=== PATIENT | male | born 1960 | race Caucasian/White ===

== ENCOUNTER 2020-10-26 08:24 | Outpatient (CLI) | payer OTHER, SELFPAY | END 2020-10-26 08:25 | disposition home or self-care (01) | LOC: CSHWCC 08:24 | PROVIDERS: ATTEND Nurse Practitioner Family | DX: I87.2 Venous insufficiency (chronic) (peripheral) (principal); L89.610 Pressure ulcer of right heel, unstageable; L89.891 Pressure ulcer of other site, stage 1; E11.621 Type 2 diabetes mellitus with foot ulcer; E11.622 Type 2 diabetes mellitus with other skin ulcer; L97.526 Non-pressure chronic ulcer of other part of left foot with bone involvement without evidence of necrosis; L97.229 Non-pressure chronic ulcer of left calf with unspecified severity; L97.329 Non-pressure chronic ulcer of left ankle with unspecified severity; L97.429 Non-pressure chronic ulcer of left heel and midfoot with unspecified severity; L89.156 Pressure-induced deep tissue damage of sacral region; L89.896 Pressure-induced deep tissue damage of other site; L89.629 Pressure ulcer of left heel, unspecified stage; R60.0 Localized edema; I70.262 Atherosclerosis of native arteries of extremities with gangrene, left leg; E11.51 Type 2 diabetes mellitus with diabetic peripheral angiopathy without gangrene; I70.25 Atherosclerosis of native arteries of other extremities with ulceration; J18.9 Pneumonia, unspecified organism; K85.92 Acute pancreatitis with infected necrosis, unspecified; Z74.01 Bed confinement status; Z89.511 Acquired absence of right leg below knee ==

== ENCOUNTER 2020-11-01 08:30 | Outpatient (CLI) | payer OTHER, SELFPAY | END 2020-11-01 08:31 | disposition home or self-care (01) | LOC: CSHWCC 08:30 | PROVIDERS: ATTEND Nurse Practitioner Family | DX: E11.621 Type 2 diabetes mellitus with foot ulcer (principal); L97.529 Non-pressure chronic ulcer of other part of left foot with unspecified severity; L97.526 Non-pressure chronic ulcer of other part of left foot with bone involvement without evidence of necrosis; I70.262 Atherosclerosis of native arteries of extremities with gangrene, left leg; L97.229 Non-pressure chronic ulcer of left calf with unspecified severity; L97.329 Non-pressure chronic ulcer of left ankle with unspecified severity; L97.429 Non-pressure chronic ulcer of left heel and midfoot with unspecified severity; L89.156 Pressure-induced deep tissue damage of sacral region; L89.629 Pressure ulcer of left heel, unspecified stage; R60.0 Localized edema; I70.25 Atherosclerosis of native arteries of other extremities with ulceration; I87.2 Venous insufficiency (chronic) (peripheral); J18.9 Pneumonia, unspecified organism; K85.92 Acute pancreatitis with infected necrosis, unspecified; L89.610 Pressure ulcer of right heel, unstageable; L89.891 Pressure ulcer of other site, stage 1; L89.896 Pressure-induced deep tissue damage of other site; Z74.01 Bed confinement status; Z89.511 Acquired absence of right leg below knee | CPT/HCPCS: 11042; 11045; 36416; 99213; G0277; G0463 ==

== ENCOUNTER 2020-11-02 09:51 | Outpatient (CLI) | payer OTHER, SELFPAY | END 2020-11-02 09:52 | disposition home or self-care (01) | LOC: CSHWCC 09:51 | PROVIDERS: ATTEND Nurse Practitioner Family | DX: E11.621 Type 2 diabetes mellitus with foot ulcer (principal); L97.529 Non-pressure chronic ulcer of other part of left foot with unspecified severity | CPT/HCPCS: 36416; G0277 ==

== ENCOUNTER 2020-11-03 11:07 | Outpatient (CLI) | payer OTHER, SELFPAY | END 2020-11-03 11:08 | disposition home or self-care (01) | LOC: CSHWCC 11:07 | PROVIDERS: ATTEND Nurse Practitioner Family | DX: E11.621 Type 2 diabetes mellitus with foot ulcer (principal); L97.529 Non-pressure chronic ulcer of other part of left foot with unspecified severity | CPT/HCPCS: 36416; G0277 ==

== ENCOUNTER 2020-11-04 08:23 | Outpatient (CLI) | payer OTHER, SELFPAY | END 2020-11-04 08:24 | disposition home or self-care (01) | LOC: CSHWCC 08:23 | PROVIDERS: ATTEND Nurse Practitioner Family | DX: E11.621 Type 2 diabetes mellitus with foot ulcer (principal); L97.529 Non-pressure chronic ulcer of other part of left foot with unspecified severity | CPT/HCPCS: 36416; G0277 ==

== ENCOUNTER 2020-11-08 08:10 | Outpatient (CLI) | payer OTHER, SELFPAY | END 2020-11-08 08:11 | disposition home or self-care (01) | LOC: CSHWCC 08:10 | PROVIDERS: ATTEND Nurse Practitioner Family | DX: E11.621 Type 2 diabetes mellitus with foot ulcer (principal); L97.529 Non-pressure chronic ulcer of other part of left foot with unspecified severity | CPT/HCPCS: 36416; G0277 ==

== ENCOUNTER 2020-11-11 08:05 | Outpatient (CLI) | payer OTHER, SELFPAY | END 2020-11-11 08:06 | disposition home or self-care (01) | LOC: CSHWCC 08:05 | PROVIDERS: ATTEND Nurse Practitioner Family | DX: E11.621 Type 2 diabetes mellitus with foot ulcer (principal); L97.529 Non-pressure chronic ulcer of other part of left foot with unspecified severity | CPT/HCPCS: 36416; G0277 ==

== ENCOUNTER 2020-11-15 07:56 | Outpatient (CLI) | payer OTHER, SELFPAY | END 2020-11-15 07:57 | disposition home or self-care (01) | LOC: CSHWCC 07:56 | PROVIDERS: ATTEND Nurse Practitioner Family | DX: E11.621 Type 2 diabetes mellitus with foot ulcer (principal); L97.529 Non-pressure chronic ulcer of other part of left foot with unspecified severity | CPT/HCPCS: 36416; G0277 ==

== ENCOUNTER 2020-11-16 08:16 | Outpatient (CLI) | payer OTHER, SELFPAY | END 2020-11-16 08:17 | disposition home or self-care (01) | LOC: CSHWCC 08:16 | PROVIDERS: ATTEND Nurse Practitioner Family | DX: E11.621 Type 2 diabetes mellitus with foot ulcer (principal); L97.529 Non-pressure chronic ulcer of other part of left foot with unspecified severity | CPT/HCPCS: 36416; G0277 ==

== ENCOUNTER 2020-11-22 10:49 | Outpatient (CLI) | payer OTHER, SELFPAY | END 2020-11-22 10:50 | disposition home or self-care (01) | LOC: CSHWCC 10:49 | PROVIDERS: ATTEND Nurse Practitioner Family | DX: E11.621 Type 2 diabetes mellitus with foot ulcer (principal); L97.529 Non-pressure chronic ulcer of other part of left foot with unspecified severity | CPT/HCPCS: 36416; G0277 ==

== ENCOUNTER 2020-11-23 10:14 | Outpatient (CLI) | payer OTHER, SELFPAY | END 2020-11-23 10:15 | disposition home or self-care (01) | LOC: CSHWCC 10:14 | PROVIDERS: ATTEND Nurse Practitioner Family | DX: E11.621 Type 2 diabetes mellitus with foot ulcer (principal); L97.529 Non-pressure chronic ulcer of other part of left foot with unspecified severity | CPT/HCPCS: 36416; 99214; G0277; G0463 ==

== ENCOUNTER 2020-11-24 08:06 | Outpatient (CLI) | payer OTHER, SELFPAY | END 2020-11-24 08:07 | disposition home or self-care (01) | LOC: CSHWCC 08:06 | PROVIDERS: ATTEND Nurse Practitioner Family | DX: E11.621 Type 2 diabetes mellitus with foot ulcer (principal); L97.529 Non-pressure chronic ulcer of other part of left foot with unspecified severity | CPT/HCPCS: 36416; G0277 ==

== ENCOUNTER 2020-11-25 10:12 | Outpatient (CLI) | payer OTHER, SELFPAY | END 2020-11-25 10:13 | disposition home or self-care (01) | LOC: CSHWCC 10:12 | PROVIDERS: ATTEND Nurse Practitioner Family | DX: E11.621 Type 2 diabetes mellitus with foot ulcer (principal); L97.529 Non-pressure chronic ulcer of other part of left foot with unspecified severity | CPT/HCPCS: 36416; G0277 ==

== ENCOUNTER 2020-11-26 08:03 | Outpatient (CLI) | payer OTHER, SELFPAY | END 2020-11-26 08:04 | disposition home or self-care (01) | LOC: CSHWCC 08:03 | PROVIDERS: ATTEND Nurse Practitioner Family | DX: E11.621 Type 2 diabetes mellitus with foot ulcer (principal); L97.529 Non-pressure chronic ulcer of other part of left foot with unspecified severity | CPT/HCPCS: 36416; G0277 ==

== ENCOUNTER 2020-11-29 08:18 | Outpatient (CLI) | payer OTHER, SELFPAY | END 2020-11-29 08:19 | disposition home or self-care (01) | LOC: CSHWCC 08:18 | PROVIDERS: ATTEND Nurse Practitioner Family | DX: E11.621 Type 2 diabetes mellitus with foot ulcer (principal); L97.529 Non-pressure chronic ulcer of other part of left foot with unspecified severity | CPT/HCPCS: 36416; G0277 ==

== ENCOUNTER 2020-12-02 11:19 | Outpatient (CLI) | payer OTHER, SELFPAY | END 2020-12-02 11:20 | disposition home or self-care (01) | LOC: CSHWCC 11:19 | PROVIDERS: ATTEND Nurse Practitioner Family | DX: E11.621 Type 2 diabetes mellitus with foot ulcer (principal); L97.529 Non-pressure chronic ulcer of other part of left foot with unspecified severity | CPT/HCPCS: 36416; G0277 ==

== ENCOUNTER 2020-12-06 10:09 | Outpatient (CLI) | payer OTHER, SELFPAY | END 2020-12-06 10:10 | disposition home or self-care (01) | LOC: CSHWCC 10:09 | PROVIDERS: ATTEND Nurse Practitioner Family | DX: E11.621 Type 2 diabetes mellitus with foot ulcer (principal); L97.529 Non-pressure chronic ulcer of other part of left foot with unspecified severity | CPT/HCPCS: 36416; G0277 ==

== ENCOUNTER 2020-12-07 09:51 | Outpatient (CLI) | payer OTHER, SELFPAY | END 2020-12-07 09:52 | disposition home or self-care (01) | LOC: CSHWCC 09:51 | PROVIDERS: ATTEND Nurse Practitioner Family | DX: E11.621 Type 2 diabetes mellitus with foot ulcer (principal); L97.529 Non-pressure chronic ulcer of other part of left foot with unspecified severity | CPT/HCPCS: 36416; G0277 ==

== ENCOUNTER 2020-12-08 12:34 | Outpatient (CLI) | payer OTHER, SELFPAY | END 2020-12-08 12:35 | disposition home or self-care (01) | LOC: CSHWCC 12:34 | PROVIDERS: ATTEND Nurse Practitioner Family | DX: E11.621 Type 2 diabetes mellitus with foot ulcer (principal); L97.529 Non-pressure chronic ulcer of other part of left foot with unspecified severity | CPT/HCPCS: 36416; G0277 ==

== ENCOUNTER 2020-12-09 10:18 | Outpatient (CLI) | payer OTHER, SELFPAY | END 2020-12-09 10:19 | disposition home or self-care (01) | LOC: CSHWCC 10:18 | PROVIDERS: ATTEND Nurse Practitioner Family | DX: E11.621 Type 2 diabetes mellitus with foot ulcer (principal); L97.529 Non-pressure chronic ulcer of other part of left foot with unspecified severity | CPT/HCPCS: 36416; G0277 ==

== ENCOUNTER 2020-12-10 08:59 | Outpatient (CLI) | payer OTHER, SELFPAY | END 2020-12-10 09:00 | disposition home or self-care (01) | LOC: CSHWCC 08:59 | PROVIDERS: ATTEND Nurse Practitioner Family | DX: I87.2 Venous insufficiency (chronic) (peripheral) (principal); L89.891 Pressure ulcer of other site, stage 1; L89.610 Pressure ulcer of right heel, unstageable; K85.92 Acute pancreatitis with infected necrosis, unspecified; E11.621 Type 2 diabetes mellitus with foot ulcer; E11.622 Type 2 diabetes mellitus with other skin ulcer; L89.629 Pressure ulcer of left heel, unspecified stage; L97.526 Non-pressure chronic ulcer of other part of left foot with bone involvement without evidence of necrosis; L97.529 Non-pressure chronic ulcer of other part of left foot with unspecified severity; I70.262 Atherosclerosis of native arteries of extremities with gangrene, left leg; L97.229 Non-pressure chronic ulcer of left calf with unspecified severity; L97.329 Non-pressure chronic ulcer of left ankle with unspecified severity; L97.429 Non-pressure chronic ulcer of left heel and midfoot with unspecified severity; L89.156 Pressure-induced deep tissue damage of sacral region; L89.896 Pressure-induced deep tissue damage of other site; R60.0 Localized edema; I70.25 Atherosclerosis of native arteries of other extremities with ulceration; J18.9 Pneumonia, unspecified organism; Z74.01 Bed confinement status; Z89.511 Acquired absence of right leg below knee | CPT/HCPCS: 11042; 36416; 99214; G0277; G0463 ==

== ENCOUNTER 2020-12-13 10:03 | Outpatient (CLI) | payer OTHER, SELFPAY | END 2020-12-13 10:04 | disposition home or self-care (01) | LOC: CSHWCC 10:03 | PROVIDERS: ATTEND Nurse Practitioner Family | DX: E11.621 Type 2 diabetes mellitus with foot ulcer (principal); L97.529 Non-pressure chronic ulcer of other part of left foot with unspecified severity | CPT/HCPCS: 36416; G0277 ==

== ENCOUNTER 2020-12-14 10:19 | Outpatient (CLI) | payer SELFPAY, OTHER | END 2020-12-14 10:20 | disposition home or self-care (01) | LOC: CSHWCC 10:19 | PROVIDERS: ATTEND Nurse Practitioner Family | DX: E11.621 Type 2 diabetes mellitus with foot ulcer (principal); L97.529 Non-pressure chronic ulcer of other part of left foot with unspecified severity | CPT/HCPCS: 36416; G0277 ==

== ENCOUNTER 2020-12-15 16:17 | Outpatient (CLI) | payer OTHER, SELFPAY | END 2020-12-15 16:18 | disposition home or self-care (01) | LOC: CSHWCC 16:17 | PROVIDERS: ATTEND Nurse Practitioner Family | DX: E11.621 Type 2 diabetes mellitus with foot ulcer (principal); L97.529 Non-pressure chronic ulcer of other part of left foot with unspecified severity | CPT/HCPCS: 36416; G0277 ==

== ENCOUNTER 2020-12-16 09:52 | Outpatient (CLI) | payer OTHER, SELFPAY | END 2020-12-16 09:53 | disposition home or self-care (01) | LOC: CSHWCC 09:52 | PROVIDERS: ATTEND Nurse Practitioner Family | DX: E11.621 Type 2 diabetes mellitus with foot ulcer (principal); L97.529 Non-pressure chronic ulcer of other part of left foot with unspecified severity | CPT/HCPCS: 36416; G0277 ==

== ENCOUNTER 2020-12-20 09:55 | Outpatient (CLI) | payer SELFPAY, OTHER | END 2020-12-20 09:56 | disposition home or self-care (01) | LOC: CSHWCC 09:55 | PROVIDERS: ATTEND Nurse Practitioner Family | DX: E11.621 Type 2 diabetes mellitus with foot ulcer (principal); L97.529 Non-pressure chronic ulcer of other part of left foot with unspecified severity | CPT/HCPCS: 36416; G0277 ==

== ENCOUNTER 2020-12-21 09:58 | Outpatient (CLI) | payer OTHER, SELFPAY | END 2020-12-21 09:59 | disposition home or self-care (01) | LOC: CSHWCC 09:58 | PROVIDERS: ATTEND Nurse Practitioner Family | DX: E11.621 Type 2 diabetes mellitus with foot ulcer (principal); L97.529 Non-pressure chronic ulcer of other part of left foot with unspecified severity | CPT/HCPCS: 36416; G0277 ==

== ENCOUNTER 2020-12-22 08:22 | Outpatient (CLI) | payer OTHER, SELFPAY | END 2020-12-22 08:23 | disposition home or self-care (01) | LOC: CSHWCC 08:22 | PROVIDERS: ATTEND Nurse Practitioner Family | DX: E11.621 Type 2 diabetes mellitus with foot ulcer (principal); L97.529 Non-pressure chronic ulcer of other part of left foot with unspecified severity | CPT/HCPCS: 36416; G0277 ==

== ENCOUNTER 2020-12-23 09:51 | Outpatient (CLI) | payer OTHER, SELFPAY | END 2020-12-23 09:52 | disposition home or self-care (01) | LOC: CSHWCC 09:51 | PROVIDERS: ATTEND Nurse Practitioner Family | DX: E11.621 Type 2 diabetes mellitus with foot ulcer (principal); L97.529 Non-pressure chronic ulcer of other part of left foot with unspecified severity | CPT/HCPCS: 36416; 99214; G0277; G0463 ==

== ENCOUNTER 2020-12-28 12:46 | Outpatient (CLI) | payer OTHER | END 2020-12-28 12:47 | disposition home or self-care (01) | LOC: CSHWCC 12:46 | PROVIDERS: ATTEND Nurse Practitioner Family | DX: E11.621 Type 2 diabetes mellitus with foot ulcer (principal); L97.529 Non-pressure chronic ulcer of other part of left foot with unspecified severity | CPT/HCPCS: 36416; G0277 ==

== ENCOUNTER 2020-12-29 12:56 | Outpatient (CLI) | payer OTHER | END 2020-12-29 12:57 | disposition home or self-care (01) | LOC: CSHWCC 12:56 | PROVIDERS: ATTEND Nurse Practitioner Family | DX: E11.621 Type 2 diabetes mellitus with foot ulcer (principal); L97.529 Non-pressure chronic ulcer of other part of left foot with unspecified severity | CPT/HCPCS: 36416; G0277 ==

== ENCOUNTER 2021-03-02 08:07 | Outpatient (CLI) | payer OTHER, SELFPAY | END 2021-03-02 08:08 | disposition home or self-care (01) | LOC: CSHWCC 08:07 | PROVIDERS: ATTEND Nurse Practitioner Family | DX: E11.621 Type 2 diabetes mellitus with foot ulcer (principal); L97.529 Non-pressure chronic ulcer of other part of left foot with unspecified severity | CPT/HCPCS: 36416; G0277 ==

== ENCOUNTER 2021-03-10 08:55 | Outpatient (CLI) | payer OTHER | END 2021-03-10 08:56 | disposition home or self-care (01) | LOC: CSHWCC 08:55 | PROVIDERS: ATTEND Nurse Practitioner Family | DX: E11.621 Type 2 diabetes mellitus with foot ulcer (principal); L97.529 Non-pressure chronic ulcer of other part of left foot with unspecified severity | CPT/HCPCS: 36416 ==

== ENCOUNTER 2021-03-14 09:50 | Outpatient (CLI) | payer OTHER, SELFPAY | END 2021-03-14 09:51 | disposition home or self-care (01) | LOC: CSHWCC 09:50 | PROVIDERS: ATTEND Nurse Practitioner Family | DX: E11.621 Type 2 diabetes mellitus with foot ulcer (principal); L97.529 Non-pressure chronic ulcer of other part of left foot with unspecified severity | CPT/HCPCS: 36416; G0277 ==

== ENCOUNTER 2021-03-16 09:10 | Outpatient (CLI) | payer OTHER, SELFPAY | END 2021-03-16 09:11 | disposition home or self-care (01) | LOC: CSHWCC 09:10 | PROVIDERS: ATTEND Nurse Practitioner Family | DX: E11.621 Type 2 diabetes mellitus with foot ulcer (principal); L97.529 Non-pressure chronic ulcer of other part of left foot with unspecified severity | CPT/HCPCS: 36416; G0277 ==

== ENCOUNTER 2021-03-23 10:46 | Outpatient (CLI) | payer OTHER | END 2021-03-23 10:47 | disposition home or self-care (01) | LOC: CSHWCC 10:46 | PROVIDERS: ATTEND Nurse Practitioner Family | DX: E11.621 Type 2 diabetes mellitus with foot ulcer (principal); L97.529 Non-pressure chronic ulcer of other part of left foot with unspecified severity | CPT/HCPCS: 36416; G0277 ==

== ENCOUNTER 2021-03-24 09:20 | Outpatient (CLI) | payer OTHER, SELFPAY | END 2021-03-24 09:21 | disposition home or self-care (01) | LOC: CSHWCC 09:20 | PROVIDERS: ATTEND Nurse Practitioner Family | DX: E11.621 Type 2 diabetes mellitus with foot ulcer (principal); L97.529 Non-pressure chronic ulcer of other part of left foot with unspecified severity | CPT/HCPCS: 36416; G0277 ==

== ENCOUNTER 2021-03-25 11:21 | Outpatient (CLI) | payer SELFPAY | END 2021-03-25 11:22 | disposition home or self-care (01) | LOC: CSHWCC 11:21 | PROVIDERS: ATTEND Nurse Practitioner Family | DX: L89.629 Pressure ulcer of left heel, unspecified stage (principal); I87.2 Venous insufficiency (chronic) (peripheral); E11.621 Type 2 diabetes mellitus with foot ulcer; E11.51 Type 2 diabetes mellitus with diabetic peripheral angiopathy without gangrene; E11.622 Type 2 diabetes mellitus with other skin ulcer; L97.412 Non-pressure chronic ulcer of right heel and midfoot with fat layer exposed; L97.522 Non-pressure chronic ulcer of other part of left foot with fat layer exposed; L97.529 Non-pressure chronic ulcer of other part of left foot with unspecified severity; I70.25 Atherosclerosis of native arteries of other extremities with ulceration; I70.262 Atherosclerosis of native arteries of extremities with gangrene, left leg; L97.229 Non-pressure chronic ulcer of left calf with unspecified severity; L97.329 Non-pressure chronic ulcer of left ankle with unspecified severity; J18.9 Pneumonia, unspecified organism; K85.92 Acute pancreatitis with infected necrosis, unspecified; R60.0 Localized edema; Z74.01 Bed confinement status; Z89.511 Acquired absence of right leg below knee | CPT/HCPCS: 99214; G0463 ==

== ENCOUNTER 2021-03-28 10:49 | Outpatient (CLI) | payer SELFPAY | END 2021-03-28 10:50 | disposition home or self-care (01) | LOC: CSHWCC 10:49 | PROVIDERS: ATTEND Nurse Practitioner Family | DX: E11.621 Type 2 diabetes mellitus with foot ulcer (principal); L97.529 Non-pressure chronic ulcer of other part of left foot with unspecified severity | CPT/HCPCS: 36416; G0277 ==

== ENCOUNTER 2021-06-16 10:32 | Outpatient (CLI) | payer SELFPAY | END 2021-06-16 10:33 | disposition home or self-care (01) | LOC: CSHWCC 10:32 | PROVIDERS: ATTEND Nurse Practitioner Family | DX: L89.629 Pressure ulcer of left heel, unspecified stage (principal); I87.2 Venous insufficiency (chronic) (peripheral); E11.621 Type 2 diabetes mellitus with foot ulcer; E11.622 Type 2 diabetes mellitus with other skin ulcer; L97.412 Non-pressure chronic ulcer of right heel and midfoot with fat layer exposed; L97.329 Non-pressure chronic ulcer of left ankle with unspecified severity; L97.522 Non-pressure chronic ulcer of other part of left foot with fat layer exposed; I70.25 Atherosclerosis of native arteries of other extremities with ulceration; I70.262 Atherosclerosis of native arteries of extremities with gangrene, left leg; R60.0 Localized edema; K85.92 Acute pancreatitis with infected necrosis, unspecified; J18.9 Pneumonia, unspecified organism; Z74.01 Bed confinement status; Z89.511 Acquired absence of right leg below knee ==

== ENCOUNTER 2021-06-21 10:55 | Outpatient (CLI) | payer SELFPAY | END 2021-06-21 10:56 | disposition home or self-care (01) | LOC: CSHWCC 10:55 | PROVIDERS: ATTEND Nurse Practitioner Family | DX: E11.621 Type 2 diabetes mellitus with foot ulcer (principal); L97.529 Non-pressure chronic ulcer of other part of left foot with unspecified severity | CPT/HCPCS: 36416; G0277 ==

== ENCOUNTER 2021-06-22 09:38 | Outpatient (CLI) | payer OTHER, SELFPAY | END 2021-06-22 09:39 | disposition home or self-care (01) | LOC: CSHWCC 09:38 | PROVIDERS: ATTEND Nurse Practitioner Family | DX: E11.621 Type 2 diabetes mellitus with foot ulcer (principal); L97.529 Non-pressure chronic ulcer of other part of left foot with unspecified severity | CPT/HCPCS: 36416; G0277 ==

== ENCOUNTER 2021-06-23 11:03 | Outpatient (CLI) | payer OTHER | END 2021-06-23 11:04 | disposition home or self-care (01) | LOC: CSHWCC 11:03 | PROVIDERS: ATTEND Nurse Practitioner Family | DX: E11.621 Type 2 diabetes mellitus with foot ulcer (principal); L97.529 Non-pressure chronic ulcer of other part of left foot with unspecified severity | CPT/HCPCS: 36416; G0277 ==

== ENCOUNTER 2021-06-24 09:58 | Outpatient (CLI) | payer SELFPAY | END 2021-06-24 09:59 | disposition home or self-care (01) | LOC: CSHWCC 09:58 | PROVIDERS: ATTEND Nurse Practitioner Family | DX: E11.621 Type 2 diabetes mellitus with foot ulcer (principal); L97.529 Non-pressure chronic ulcer of other part of left foot with unspecified severity | CPT/HCPCS: 36416; G0277 ==

== ENCOUNTER 2021-06-27 09:52 | Outpatient (CLI) | payer SELFPAY | END 2021-06-27 09:53 | disposition home or self-care (01) | LOC: CSHWCC 09:52 | PROVIDERS: ATTEND Nurse Practitioner Family | DX: E11.621 Type 2 diabetes mellitus with foot ulcer (principal); L97.529 Non-pressure chronic ulcer of other part of left foot with unspecified severity | CPT/HCPCS: 36416; G0277 ==

== ENCOUNTER 2021-06-29 10:56 | Outpatient (CLI) | payer SELFPAY | END 2021-06-29 10:57 | disposition home or self-care (01) | LOC: CSHWCC 10:56 | PROVIDERS: ATTEND Nurse Practitioner Family | DX: E11.621 Type 2 diabetes mellitus with foot ulcer (principal); L97.529 Non-pressure chronic ulcer of other part of left foot with unspecified severity | CPT/HCPCS: 36416; G0277 ==

== ENCOUNTER 2021-06-30 10:18 | Outpatient (CLI) | payer SELFPAY | END 2021-06-30 10:19 | disposition home or self-care (01) | LOC: CSHWCC 10:18 | PROVIDERS: ATTEND Nurse Practitioner Family | DX: E11.621 Type 2 diabetes mellitus with foot ulcer (principal); L97.529 Non-pressure chronic ulcer of other part of left foot with unspecified severity | CPT/HCPCS: 36416 ==

== ENCOUNTER 2021-07-04 10:49 | Outpatient (CLI) | payer SELFPAY | END 2021-07-04 10:50 | disposition home or self-care (01) | LOC: CSHWCC 10:49 | PROVIDERS: ATTEND Nurse Practitioner Family | DX: E11.621 Type 2 diabetes mellitus with foot ulcer (principal); L97.529 Non-pressure chronic ulcer of other part of left foot with unspecified severity | CPT/HCPCS: 36416; G0277 ==

== ENCOUNTER 2021-07-05 08:18 | Outpatient (CLI) | payer SELFPAY | END 2021-07-05 08:19 | disposition home or self-care (01) | LOC: CSHWCC 08:18 | PROVIDERS: ATTEND Nurse Practitioner Family | DX: E11.621 Type 2 diabetes mellitus with foot ulcer (principal); L97.529 Non-pressure chronic ulcer of other part of left foot with unspecified severity | CPT/HCPCS: 36416 ==

== ENCOUNTER 2021-07-06 11:11 | Outpatient (CLI) | payer SELFPAY | END 2021-07-06 11:12 | disposition home or self-care (01) | LOC: CSHWCC 11:11 | PROVIDERS: ATTEND Nurse Practitioner Family | DX: L89.629 Pressure ulcer of left heel, unspecified stage (principal); E11.621 Type 2 diabetes mellitus with foot ulcer; L97.412 Non-pressure chronic ulcer of right heel and midfoot with fat layer exposed; L97.522 Non-pressure chronic ulcer of other part of left foot with fat layer exposed; R60.0 Localized edema; I70.25 Atherosclerosis of native arteries of other extremities with ulceration; I70.262 Atherosclerosis of native arteries of extremities with gangrene, left leg; L97.329 Non-pressure chronic ulcer of left ankle with unspecified severity; I87.2 Venous insufficiency (chronic) (peripheral); J18.9 Pneumonia, unspecified organism; K85.92 Acute pancreatitis with infected necrosis, unspecified; Z74.01 Bed confinement status; Z89.511 Acquired absence of right leg below knee | CPT/HCPCS: 11042; 36416; 99213; G0277; G0463 ==

== ENCOUNTER 2021-07-11 10:04 | Outpatient (CLI) | payer SELFPAY | END 2021-07-11 10:05 | disposition home or self-care (01) | LOC: CSHWCC 10:04 | PROVIDERS: ATTEND Nurse Practitioner Family | DX: E11.621 Type 2 diabetes mellitus with foot ulcer (principal); L97.529 Non-pressure chronic ulcer of other part of left foot with unspecified severity | CPT/HCPCS: 36416; G0277 ==

== ENCOUNTER 2021-07-12 11:31 | Outpatient (CLI) | payer SELFPAY | END 2021-07-12 11:32 | disposition home or self-care (01) | LOC: CSHWCC 11:31 | PROVIDERS: ATTEND Nurse Practitioner Family | DX: E11.621 Type 2 diabetes mellitus with foot ulcer (principal); L97.529 Non-pressure chronic ulcer of other part of left foot with unspecified severity | CPT/HCPCS: 36416; G0277 ==

== ENCOUNTER 2021-07-13 09:24 | Outpatient (CLI) | payer SELFPAY | END 2021-07-13 09:25 | disposition home or self-care (01) | LOC: CSHWCC 09:24 | PROVIDERS: ATTEND Nurse Practitioner Family | DX: E11.621 Type 2 diabetes mellitus with foot ulcer (principal); L97.529 Non-pressure chronic ulcer of other part of left foot with unspecified severity | CPT/HCPCS: 36416 ==

== ENCOUNTER 2021-07-14 10:34 | Outpatient (CLI) | payer SELFPAY | END 2021-07-14 10:35 | disposition home or self-care (01) | LOC: CSHWCC 10:34 | PROVIDERS: ATTEND Nurse Practitioner Family | DX: E11.621 Type 2 diabetes mellitus with foot ulcer (principal); L97.529 Non-pressure chronic ulcer of other part of left foot with unspecified severity | CPT/HCPCS: 36416 ==

== ENCOUNTER 2021-07-15 09:50 | Outpatient (CLI) | payer SELFPAY | END 2021-07-15 09:51 | disposition home or self-care (01) | LOC: CSHWCC 09:50 | PROVIDERS: ATTEND Nurse Practitioner Family | DX: E11.621 Type 2 diabetes mellitus with foot ulcer (principal); L97.529 Non-pressure chronic ulcer of other part of left foot with unspecified severity | CPT/HCPCS: 36416; G0277 ==

== ENCOUNTER 2021-07-19 11:08 | Outpatient (CLI) | payer SELFPAY | END 2021-07-19 11:09 | disposition home or self-care (01) | LOC: CSHWCC 11:08 | PROVIDERS: ATTEND Nurse Practitioner Family | DX: E11.621 Type 2 diabetes mellitus with foot ulcer (principal); L97.529 Non-pressure chronic ulcer of other part of left foot with unspecified severity | CPT/HCPCS: 36416 ==

== ENCOUNTER 2021-07-20 11:07 | Outpatient (CLI) | payer SELFPAY | END 2021-07-20 11:08 | disposition home or self-care (01) | LOC: CSHWCC 11:07 | PROVIDERS: ATTEND Nurse Practitioner Family | DX: E11.621 Type 2 diabetes mellitus with foot ulcer (principal); L97.529 Non-pressure chronic ulcer of other part of left foot with unspecified severity | CPT/HCPCS: 36416 ==

== ENCOUNTER 2021-07-21 11:02 | Outpatient (CLI) | payer SELFPAY | END 2021-07-21 11:03 | disposition home or self-care (01) | LOC: CSHWCC 11:02 | PROVIDERS: ATTEND Nurse Practitioner Family | DX: E11.621 Type 2 diabetes mellitus with foot ulcer (principal); L97.529 Non-pressure chronic ulcer of other part of left foot with unspecified severity | CPT/HCPCS: 36416; G0277 ==

== ENCOUNTER 2021-07-22 11:09 | Outpatient (CLI) | payer SELFPAY | END 2021-07-22 11:10 | disposition home or self-care (01) | LOC: CSHWCC 11:09 | PROVIDERS: ATTEND Nurse Practitioner Family | DX: E11.621 Type 2 diabetes mellitus with foot ulcer (principal); L97.529 Non-pressure chronic ulcer of other part of left foot with unspecified severity | CPT/HCPCS: 36416; G0277 ==

== ENCOUNTER 2021-07-25 11:02 | Outpatient (CLI) | payer SELFPAY | END 2021-07-25 11:03 | disposition home or self-care (01) | LOC: CSHWCC 11:02 | PROVIDERS: ATTEND Nurse Practitioner Family | DX: E11.621 Type 2 diabetes mellitus with foot ulcer (principal); L97.529 Non-pressure chronic ulcer of other part of left foot with unspecified severity | CPT/HCPCS: 36416; G0277 ==

== ENCOUNTER 2021-07-26 11:24 | Outpatient (CLI) | payer SELFPAY | END 2021-07-26 11:25 | disposition home or self-care (01) | LOC: CSHWCC 11:24 | PROVIDERS: ATTEND Nurse Practitioner Family | DX: E11.621 Type 2 diabetes mellitus with foot ulcer (principal); L97.529 Non-pressure chronic ulcer of other part of left foot with unspecified severity | CPT/HCPCS: 36416; G0277 ==

== ENCOUNTER 2021-07-27 12:44 | Outpatient (CLI) | payer SELFPAY | END 2021-07-27 12:45 | disposition home or self-care (01) | LOC: CSHWCC 12:44 | PROVIDERS: ATTEND Nurse Practitioner Family | DX: E11.621 Type 2 diabetes mellitus with foot ulcer (principal); L97.529 Non-pressure chronic ulcer of other part of left foot with unspecified severity | CPT/HCPCS: 36416 ==

== ENCOUNTER 2021-07-28 11:13 | Outpatient (CLI) | payer SELFPAY | END 2021-07-28 11:14 | disposition home or self-care (01) | LOC: CSHWCC 11:13 | PROVIDERS: ATTEND Nurse Practitioner Family | DX: E11.621 Type 2 diabetes mellitus with foot ulcer (principal); L97.529 Non-pressure chronic ulcer of other part of left foot with unspecified severity | CPT/HCPCS: 36416 ==

== ENCOUNTER 2021-08-10 13:56 | Outpatient (CLI) | payer SELFPAY | END 2021-08-10 13:57 | disposition home or self-care (01) | LOC: CSHWCC 13:56 | PROVIDERS: ATTEND Nurse Practitioner Family | DX: E11.621 Type 2 diabetes mellitus with foot ulcer (principal); L97.412 Non-pressure chronic ulcer of right heel and midfoot with fat layer exposed; L97.522 Non-pressure chronic ulcer of other part of left foot with fat layer exposed; I70.262 Atherosclerosis of native arteries of extremities with gangrene, left leg; L97.329 Non-pressure chronic ulcer of left ankle with unspecified severity; I87.2 Venous insufficiency (chronic) (peripheral); J18.9 Pneumonia, unspecified organism; K85.92 Acute pancreatitis with infected necrosis, unspecified; L89.623 Pressure ulcer of left heel, stage 3; R60.0 Localized edema; Z89.511 Acquired absence of right leg below knee | CPT/HCPCS: 87070; 87077; 87186; 87205; 99213; G0463 ==

== ENCOUNTER 2021-08-16 11:08 | Outpatient (CLI) | payer OTHER | END 2021-08-16 11:09 | disposition home or self-care (01) | LOC: CSHWCC 11:08 | PROVIDERS: ATTEND Nurse Practitioner Family | DX: E11.621 Type 2 diabetes mellitus with foot ulcer (principal); L97.529 Non-pressure chronic ulcer of other part of left foot with unspecified severity | CPT/HCPCS: 36416 ==

== ENCOUNTER 2021-08-19 11:21 | Outpatient (CLI) | payer OTHER | END 2021-08-19 11:22 | disposition home or self-care (01) | LOC: CSHWCC 11:21 | PROVIDERS: ATTEND Nurse Practitioner Family | DX: E11.621 Type 2 diabetes mellitus with foot ulcer (principal); L97.529 Non-pressure chronic ulcer of other part of left foot with unspecified severity | CPT/HCPCS: 36416; G0277 ==

== ENCOUNTER 2021-08-24 11:27 | Outpatient (CLI) | payer OTHER | END 2021-08-24 11:28 | disposition home or self-care (01) | LOC: CSHWCC 11:27 | PROVIDERS: ATTEND Nurse Practitioner Family | DX: E11.621 Type 2 diabetes mellitus with foot ulcer (principal); L97.529 Non-pressure chronic ulcer of other part of left foot with unspecified severity | CPT/HCPCS: 36416 ==

== ENCOUNTER 2021-08-25 13:18 | Outpatient (CLI) | payer OTHER | END 2021-08-25 13:19 | disposition home or self-care (01) | LOC: CSHWCC 13:18 | PROVIDERS: ATTEND Nurse Practitioner Family | DX: E11.621 Type 2 diabetes mellitus with foot ulcer (principal); L97.529 Non-pressure chronic ulcer of other part of left foot with unspecified severity | CPT/HCPCS: 36416 ==

== ENCOUNTER 2021-08-31 14:42 | Outpatient (CLI) | payer OTHER | END 2021-08-31 14:43 | disposition home or self-care (01) | LOC: CSHWCC 14:42 | PROVIDERS: ATTEND Nurse Practitioner Family | DX: E11.621 Type 2 diabetes mellitus with foot ulcer (principal); L97.529 Non-pressure chronic ulcer of other part of left foot with unspecified severity | CPT/HCPCS: 36416; G0277 ==

== ENCOUNTER 2021-10-12 12:53 | Outpatient (CLI) | payer OTHER, SELFPAY | END 2021-10-12 12:54 | disposition home or self-care (01) | LOC: CSHWCC 12:53 | PROVIDERS: ATTEND Nurse Practitioner Family | DX: L89.629 Pressure ulcer of left heel, unspecified stage (principal); R60.0 Localized edema; I70.262 Atherosclerosis of native arteries of extremities with gangrene, left leg; E11.621 Type 2 diabetes mellitus with foot ulcer; L97.329 Non-pressure chronic ulcer of left ankle with unspecified severity; L97.522 Non-pressure chronic ulcer of other part of left foot with fat layer exposed; I70.25 Atherosclerosis of native arteries of other extremities with ulceration; I87.2 Venous insufficiency (chronic) (peripheral); J18.9 Pneumonia, unspecified organism; K85.92 Acute pancreatitis with infected necrosis, unspecified; Z74.01 Bed confinement status; Z89.511 Acquired absence of right leg below knee | CPT/HCPCS: 11042; 11045; 36416; 99213; 99214; G0463 ==

== ENCOUNTER 2021-12-14 12:50 | Outpatient (CLI) | payer OTHER | END 2021-12-14 12:51 | disposition home or self-care (01) | LOC: CSHWCC 12:50 | PROVIDERS: ATTEND Nurse Practitioner Family | DX: L89.629 Pressure ulcer of left heel, unspecified stage (principal); E11.621 Type 2 diabetes mellitus with foot ulcer; L97.509 Non-pressure chronic ulcer of other part of unspecified foot with unspecified severity; R60.0 Localized edema | CPT/HCPCS: 11042; 99213; G0463 ==

== ENCOUNTER 2022-01-04 14:35 | Outpatient (CLI) | payer OTHER | END 2022-01-04 14:36 | disposition home or self-care (01) | LOC: CSHWCC 14:35 | PROVIDERS: ATTEND Nurse Practitioner Family | DX: L89.629 Pressure ulcer of left heel, unspecified stage (principal); E11.621 Type 2 diabetes mellitus with foot ulcer; L97.509 Non-pressure chronic ulcer of other part of unspecified foot with unspecified severity; R60.0 Localized edema | CPT/HCPCS: 11042; 11045; 99213; G0463 ==

== ENCOUNTER 2022-01-25 14:33 | Outpatient (CLI) | payer SELFPAY | END 2022-01-25 14:34 | disposition home or self-care (01) | LOC: CSHWCC 14:33 | PROVIDERS: ATTEND Nurse Practitioner Family | DX: L89.629 Pressure ulcer of left heel, unspecified stage (principal); L89.522 Pressure ulcer of left ankle, stage 2; E11.621 Type 2 diabetes mellitus with foot ulcer; L97.529 Non-pressure chronic ulcer of other part of left foot with unspecified severity; R60.0 Localized edema | CPT/HCPCS: 11042; 99203; G0463 ==

== ENCOUNTER 2022-02-15 13:33 | Outpatient (CLI) | payer SELFPAY | END 2022-02-15 13:34 | disposition home or self-care (01) | LOC: CSHWCC 13:33 | PROVIDERS: ATTEND Nurse Practitioner Family | DX: L89.522 Pressure ulcer of left ankle, stage 2 (principal); L89.629 Pressure ulcer of left heel, unspecified stage; E11.621 Type 2 diabetes mellitus with foot ulcer; L97.522 Non-pressure chronic ulcer of other part of left foot with fat layer exposed; R60.0 Localized edema ==

== ENCOUNTER 2022-04-12 14:45 | Outpatient (CLI) | payer OTHER, SELFPAY | END 2022-04-12 14:46 | disposition home or self-care (01) | LOC: CSHWCC 14:45 | PROVIDERS: ATTEND Preventive Medicine Undersea and Hyperbaric Medicine | DX: E11.621 Type 2 diabetes mellitus with foot ulcer (principal); L97.522 Non-pressure chronic ulcer of other part of left foot with fat layer exposed; L97.425 Non-pressure chronic ulcer of left heel and midfoot with muscle involvement without evidence of necrosis; R60.0 Localized edema; E11.622 Type 2 diabetes mellitus with other skin ulcer; L97.322 Non-pressure chronic ulcer of left ankle with fat layer exposed | CPT/HCPCS: 11042; 99214; G0463 ==

== ENCOUNTER 2022-04-26 10:52 | Outpatient (CLI) | payer OTHER | END 2022-04-26 10:53 | disposition home or self-care (01) | LOC: CSHWCC 10:52 | PROVIDERS: ATTEND Nurse Practitioner Family | DX: E11.621 Type 2 diabetes mellitus with foot ulcer (principal); L97.522 Non-pressure chronic ulcer of other part of left foot with fat layer exposed; L97.425 Non-pressure chronic ulcer of left heel and midfoot with muscle involvement without evidence of necrosis; E11.622 Type 2 diabetes mellitus with other skin ulcer; L97.322 Non-pressure chronic ulcer of left ankle with fat layer exposed; R60.0 Localized edema | CPT/HCPCS: 11042 ==

== ENCOUNTER 2022-05-10 13:22 | Outpatient (CLI) | payer OTHER | END 2022-05-10 13:23 | disposition home or self-care (01) | LOC: CSHWCC 13:22 | PROVIDERS: ATTEND Preventive Medicine Undersea and Hyperbaric Medicine | DX: E11.621 Type 2 diabetes mellitus with foot ulcer (principal); E11.622 Type 2 diabetes mellitus with other skin ulcer; L97.425 Non-pressure chronic ulcer of left heel and midfoot with muscle involvement without evidence of necrosis; L97.322 Non-pressure chronic ulcer of left ankle with fat layer exposed; L97.522 Non-pressure chronic ulcer of other part of left foot with fat layer exposed; R60.0 Localized edema | CPT/HCPCS: 11042 ==

== ENCOUNTER 2022-05-24 13:11 | Outpatient (CLI) | payer OTHER | END 2022-05-24 13:12 | disposition home or self-care (01) | LOC: CSHWCC 13:11 | PROVIDERS: ATTEND Preventive Medicine Undersea and Hyperbaric Medicine | DX: E11.621 Type 2 diabetes mellitus with foot ulcer (principal); L97.425 Non-pressure chronic ulcer of left heel and midfoot with muscle involvement without evidence of necrosis; R60.0 Localized edema ==

== ENCOUNTER 2022-06-07 12:56 | Outpatient (CLI) | payer OTHER | END 2022-06-07 12:57 | disposition home or self-care (01) | LOC: CSHWCC 12:56 | PROVIDERS: ATTEND Nurse Practitioner Family | DX: E11.621 Type 2 diabetes mellitus with foot ulcer (principal); L97.425 Non-pressure chronic ulcer of left heel and midfoot with muscle involvement without evidence of necrosis; R60.0 Localized edema | CPT/HCPCS: 11042; 87070; 87205; 99213; G0463 ==

== ENCOUNTER 2022-06-28 13:43 | Outpatient (CLI) | payer OTHER | END 2022-06-28 13:44 | disposition home or self-care (01) | LOC: CSHWCC 13:43 | PROVIDERS: ATTEND Nurse Practitioner Family | DX: E11.621 Type 2 diabetes mellitus with foot ulcer (principal); L97.425 Non-pressure chronic ulcer of left heel and midfoot with muscle involvement without evidence of necrosis; R60.0 Localized edema | CPT/HCPCS: 29581 ==

== ENCOUNTER 2022-07-12 14:30 | Outpatient (CLI) | payer OTHER | END 2022-07-12 14:31 | disposition home or self-care (01) | LOC: CSHWCC 14:30 | PROVIDERS: ATTEND Nurse Practitioner Family | DX: E11.621 Type 2 diabetes mellitus with foot ulcer (principal); L97.425 Non-pressure chronic ulcer of left heel and midfoot with muscle involvement without evidence of necrosis; L97.429 Non-pressure chronic ulcer of left heel and midfoot with unspecified severity; L97.522 Non-pressure chronic ulcer of other part of left foot with fat layer exposed; R60.0 Localized edema | CPT/HCPCS: 29445; 29581 ==

== ENCOUNTER 2022-07-19 12:57 | Outpatient (CLI) | payer OTHER | END 2022-07-19 12:58 | disposition home or self-care (01) | LOC: CSHWCC 12:57 | PROVIDERS: ATTEND Nurse Practitioner Family | DX: E11.621 Type 2 diabetes mellitus with foot ulcer (principal); L97.425 Non-pressure chronic ulcer of left heel and midfoot with muscle involvement without evidence of necrosis; L97.529 Non-pressure chronic ulcer of other part of left foot with unspecified severity; L97.522 Non-pressure chronic ulcer of other part of left foot with fat layer exposed; R60.0 Localized edema | CPT/HCPCS: 29581 ==

== ENCOUNTER 2022-08-03 15:02 | Outpatient (CLI) | payer OTHER | END 2022-08-03 15:03 | disposition home or self-care (01) | LOC: CSHWCC 15:02 | PROVIDERS: ATTEND Nurse Practitioner Family | DX: E11.621 Type 2 diabetes mellitus with foot ulcer (principal); L97.425 Non-pressure chronic ulcer of left heel and midfoot with muscle involvement without evidence of necrosis; R60.0 Localized edema; L97.429 Non-pressure chronic ulcer of left heel and midfoot with unspecified severity; L97.529 Non-pressure chronic ulcer of other part of left foot with unspecified severity ==

== ENCOUNTER 2022-08-16 11:05 | Outpatient (CLI) | payer OTHER | END 2022-08-16 11:06 | disposition home or self-care (01) | LOC: CSHWCC 11:05 | PROVIDERS: ATTEND Nurse Practitioner Family | DX: E11.621 Type 2 diabetes mellitus with foot ulcer (principal); L97.529 Non-pressure chronic ulcer of other part of left foot with unspecified severity; L97.425 Non-pressure chronic ulcer of left heel and midfoot with muscle involvement without evidence of necrosis; R60.0 Localized edema ==

== ENCOUNTER 2022-08-17 08:42 | Outpatient (CLI) | payer OTHER | END 2022-08-17 08:43 | disposition home or self-care (01) | LOC: CSHWCC 08:42 | PROVIDERS: ATTEND Nurse Practitioner Family | DX: E11.621 Type 2 diabetes mellitus with foot ulcer (principal); L97.529 Non-pressure chronic ulcer of other part of left foot with unspecified severity; L97.425 Non-pressure chronic ulcer of left heel and midfoot with muscle involvement without evidence of necrosis; R60.0 Localized edema | CPT/HCPCS: 11042; 29445 ==

== ENCOUNTER 2022-08-25 09:16 | Outpatient (CLI) | payer OTHER | END 2022-08-25 09:17 | disposition home or self-care (01) | LOC: CSHWCC 09:16 | PROVIDERS: ATTEND Nurse Practitioner Family | DX: E11.621 Type 2 diabetes mellitus with foot ulcer (principal); L97.425 Non-pressure chronic ulcer of left heel and midfoot with muscle involvement without evidence of necrosis; L97.529 Non-pressure chronic ulcer of other part of left foot with unspecified severity; R60.0 Localized edema | CPT/HCPCS: 29445; 29581 ==

== ENCOUNTER 2022-09-05 14:18 | Outpatient (CLI) | payer OTHER | END 2022-09-05 14:19 | disposition home or self-care (01) | LOC: CSHWCC 14:18 | PROVIDERS: ATTEND Nurse Practitioner Family | DX: E11.621 Type 2 diabetes mellitus with foot ulcer (principal); L97.529 Non-pressure chronic ulcer of other part of left foot with unspecified severity; L97.425 Non-pressure chronic ulcer of left heel and midfoot with muscle involvement without evidence of necrosis; R60.0 Localized edema | CPT/HCPCS: 29581 ==

== ENCOUNTER 2022-09-20 15:31 | Outpatient (CLI) | payer OTHER | END 2022-09-20 15:32 | disposition home or self-care (01) | LOC: CSHWCC 15:31 | PROVIDERS: ATTEND Nurse Practitioner Family | DX: R60.0 Localized edema (principal) | CPT/HCPCS: 11042 ==

== ENCOUNTER 2022-09-27 14:14 | Outpatient (CLI) | payer OTHER | END 2022-09-27 14:15 | disposition home or self-care (01) | LOC: CSHWCC 14:14 | PROVIDERS: ATTEND Nurse Practitioner Family | DX: E11.621 Type 2 diabetes mellitus with foot ulcer (principal); L97.425 Non-pressure chronic ulcer of left heel and midfoot with muscle involvement without evidence of necrosis; R60.0 Localized edema | CPT/HCPCS: 29445 ==

== ENCOUNTER 2022-10-06 10:50 | Outpatient (CLI) | payer OTHER | END 2022-10-06 10:51 | disposition home or self-care (01) | LOC: CSHWCC 10:50 | PROVIDERS: ATTEND Nurse Practitioner Family | DX: E11.621 Type 2 diabetes mellitus with foot ulcer (principal); L97.425 Non-pressure chronic ulcer of left heel and midfoot with muscle involvement without evidence of necrosis; R60.0 Localized edema | CPT/HCPCS: 29445; 29581 ==

== ENCOUNTER 2022-10-16 13:41 | Outpatient (CLI) | payer MEDICARE | END 2022-10-16 13:42 | disposition home or self-care (01) | LOC: CSHWCC 13:41 | PROVIDERS: ATTEND Nurse Practitioner Family | DX: E11.621 Type 2 diabetes mellitus with foot ulcer (principal); L97.425 Non-pressure chronic ulcer of left heel and midfoot with muscle involvement without evidence of necrosis; R60.0 Localized edema | CPT/HCPCS: 29445; 29581 ==

== ENCOUNTER 2022-10-26 14:48 | Outpatient (CLI) | payer SELFPAY | END 2022-10-26 14:49 | disposition home or self-care (01) | LOC: CSHWCC 14:48 | PROVIDERS: ATTEND Nurse Practitioner Family | DX: E11.621 Type 2 diabetes mellitus with foot ulcer (principal); L97.425 Non-pressure chronic ulcer of left heel and midfoot with muscle involvement without evidence of necrosis; R60.0 Localized edema | CPT/HCPCS: 29445; 29581 ==

== ENCOUNTER 2022-11-06 13:54 | Outpatient (CLI) | payer MEDICARE | END 2022-11-06 13:55 | disposition home or self-care (01) | LOC: CSHWCC 13:54 | PROVIDERS: ATTEND Nurse Practitioner Family | DX: E11.621 Type 2 diabetes mellitus with foot ulcer (principal); L97.425 Non-pressure chronic ulcer of left heel and midfoot with muscle involvement without evidence of necrosis; R60.0 Localized edema | CPT/HCPCS: 97139; G0463; 99212 ==

== ENCOUNTER 2022-11-09 14:50 | Outpatient (CLI) | payer MEDICARE | END 2022-11-09 14:51 | disposition home or self-care (01) | LOC: CSHWCC 14:50 | PROVIDERS: ATTEND Nurse Practitioner Family | DX: E11.621 Type 2 diabetes mellitus with foot ulcer (principal); L97.425 Non-pressure chronic ulcer of left heel and midfoot with muscle involvement without evidence of necrosis; R60.0 Localized edema | CPT/HCPCS: 29445; 29581 ==

== ENCOUNTER 2022-11-15 11:59 | Outpatient (CLI) | payer MEDICARE | END 2022-11-15 12:00 | disposition home or self-care (01) | LOC: CSHWCC 11:59 | PROVIDERS: ATTEND Nurse Practitioner Family | DX: E11.621 Type 2 diabetes mellitus with foot ulcer (principal); L97.425 Non-pressure chronic ulcer of left heel and midfoot with muscle involvement without evidence of necrosis; R60.0 Localized edema | CPT/HCPCS: 29581 ==

== ENCOUNTER 2022-12-07 10:24 | Outpatient (CLI) | payer MEDICARE | END 2022-12-07 10:25 | disposition home or self-care (01) | LOC: CSHWCC 10:24 | PROVIDERS: ATTEND Nurse Practitioner Family | DX: E11.621 Type 2 diabetes mellitus with foot ulcer (principal); L97.425 Non-pressure chronic ulcer of left heel and midfoot with muscle involvement without evidence of necrosis; R60.0 Localized edema ==

== ENCOUNTER 2022-12-21 14:04 | Outpatient (CLI) | payer MEDICARE | END 2022-12-21 14:05 | disposition home or self-care (01) | LOC: CSHWCC 14:04 | PROVIDERS: ATTEND Nurse Practitioner Family | DX: R60.0 Localized edema (principal); E11.621 Type 2 diabetes mellitus with foot ulcer; L97.425 Non-pressure chronic ulcer of left heel and midfoot with muscle involvement without evidence of necrosis; L89.890 Pressure ulcer of other site, unstageable | CPT/HCPCS: 29581; 87070; 87077; 87186; 87205; 97139; G0463; 99213 ==

== ENCOUNTER 2022-12-25 09:19 | Outpatient (CLI) | payer MEDICARE | END 2022-12-25 09:20 | disposition home or self-care (01) | LOC: CSHWCC 09:19 | PROVIDERS: ATTEND Nurse Practitioner Family | DX: L89.890 Pressure ulcer of other site, unstageable (principal); E11.621 Type 2 diabetes mellitus with foot ulcer; L97.415 Non-pressure chronic ulcer of right heel and midfoot with muscle involvement without evidence of necrosis; R60.0 Localized edema | CPT/HCPCS: 29581 ==

== ENCOUNTER 2022-12-27 09:26 | Outpatient (CLI) | payer OTHER | END 2022-12-27 09:27 | disposition home or self-care (01) | LOC: CSHWCC 09:26 | PROVIDERS: ATTEND Nurse Practitioner Family | DX: E11.621 Type 2 diabetes mellitus with foot ulcer (principal); L97.425 Non-pressure chronic ulcer of left heel and midfoot with muscle involvement without evidence of necrosis; R60.0 Localized edema | CPT/HCPCS: 29581 ==

== ENCOUNTER 2023-03-01 14:35 | Outpatient (CLI) | payer OTHER | END 2023-03-01 14:36 | disposition home or self-care (01) | LOC: CSHWCC 14:35 | PROVIDERS: ATTEND Nurse Practitioner Family | DX: S91.102D Unspecified open wound of left great toe without damage to nail, subsequent encounter (principal); L89.890 Pressure ulcer of other site, unstageable; L89.95 Pressure ulcer of unspecified site, unstageable; L89.893 Pressure ulcer of other site, stage 3; E11.621 Type 2 diabetes mellitus with foot ulcer; L97.425 Non-pressure chronic ulcer of left heel and midfoot with muscle involvement without evidence of necrosis; R60.0 Localized edema | CPT/HCPCS: 11042; 11045; 29581 ==

== ENCOUNTER 2023-03-27 10:06 | Outpatient (CLI) | payer OTHER, SELFPAY | END 2023-03-27 10:07 | disposition home or self-care (01) | LOC: CSHWCC 10:06 | PROVIDERS: ATTEND Nurse Practitioner Family | DX: E11.621 Type 2 diabetes mellitus with foot ulcer (principal); R60.0 Localized edema; L97.425 Non-pressure chronic ulcer of left heel and midfoot with muscle involvement without evidence of necrosis; L89.890 Pressure ulcer of other site, unstageable | CPT/HCPCS: 97139; G0463; 99212 ==

== ENCOUNTER 2023-04-06 11:05 | Outpatient (CLI) | payer OTHER | END 2023-04-06 11:06 | disposition home or self-care (01) | LOC: CSHWCC 11:05 | PROVIDERS: ATTEND Nurse Practitioner Family | DX: E11.621 Type 2 diabetes mellitus with foot ulcer (principal); R60.0 Localized edema; L97.425 Non-pressure chronic ulcer of left heel and midfoot with muscle involvement without evidence of necrosis; L89.890 Pressure ulcer of other site, unstageable | CPT/HCPCS: 87070; 87077; 87186; 87205; 97139; 97597; G0463; 99213 ==